=== PATIENT | female | born 1970 | race Caucasian/White ===

== ENCOUNTER 2018-03-10 08:40 | Emergency (ER) | payer BC ==
--- NOTE | 2018-03-10 08:52 | UC ---
Respiratory Complaint HPI - HPI Summary HPI Summary: Patient is 47 year old female who presents today with sinus pressure/headache and sore throat symptoms for past 2 weeks. She does have a history of previous sinusitis episodes, last one was in June that she cut the treatment for. 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 Associated symptoms: There is headache which gets worse with bending and more localized around her frontal left side. Also has jaw pain on the left side which worsens with jaw movements. She has not been able to sleep well recently due to this . No sick contacts . No skin rash. Denies any fever, chills, cough chest pain or shortness of breath . No diaphoresis. Denies any abdominal pain , nausea or vomiting , diarrhea or constipation. - History of Current Complaint Stated Complaint: SINUS COMPLAINT Time Seen by Provider: 03/10/18 08:48 Hx Obtained From: Patient Hx Last Menstrual Period: 01/08/16 ?: No - LMP February 19, 2018 Onset/Duration: Gradual Onset, Lasting Weeks Severity Initially: Mild Severity Currently: Moderate - Allergies/Home Medications Allergies/Adverse Reactions: Allergies Allergy/AdvReac Type Severity Reaction Status Date / Time Sulfa (Sulfonamide Allergy Intermediate Hives Verified 03/10/18 08:46 Antibiotics) Home Medications: Home Medications Azelastine/Fluticasone CARL(NF [Dymista(NF)] 1 spray BOTH NARES DAILY 03/10/18 [ History Confirmed 03/10/18] Omeprazole CAP* [Prilosec CAP* 20 MG] 20 mg PO DAILY PRN 03/10/18 [History Confirmed 03/10/18] PMH/Surg Hx/FS Hx/Imm Hx - Additional Past Medical History Additional PMH: Breast cancer being treated-getting radiation Previously Healthy: Yes Endocrine History: Thyroid Disease, Hypothyroidism Other Endocrine History: negative Other Cardiovascular History: negative Other Respiratory History: negative Other GI/ History: negative Other Neurological History: negative Other Psychological History: negative Cancer History: Breast Cancer - Currently getting radiation therapy - Surgical History Surgical History: Yes Surgery Procedure, Year, and Place: Appendectomy, 1999, [facility]. RIGHT breast lumpectomy, Jun 2016, [facility] - Family History Known Family History: Positive: Cardiac Disease - Social History Alcohol Use: Occasionally Alcohol Amount: 1 Substance Use Type: None Smoking Status (MU): Current Some Day Smoker Type: Cigarettes Amount Used/How Often: 1 PPD Length of Time of Smoking/Using Tobacco: On and Off for 10 Years Have You Smoked in the Last Year: No When Did the Patient Quit Smoking/Using Tobacco: 09/27/13 - Immunization History Most Recent Influenza Vaccination: UNK Most Recent Tetanus Shot: UNK Most Recent Pneumonia Vaccination: N/A Review of Systems Constitutional: Negative Skin: Negative Eyes: Negative ENT: Dental Pain, Sore Throat, Sinus Congestion, Sinus Pain/Tenderness, Other - left sided tmj pain Respiratory: Negative Cardiovascular: Negative Gastrointestinal: Negative Genitourinary: Negative Motor: Negative Neurovascular: Negative Musculoskeletal: Negative Neurological: Headache - Left frontal/sinus headache Psychological: Negative Is Patient Immunocompromised?: No All Other Systems Reviewed And Are Negative: Yes Physical Exam - Summary Physical Exam Summary: Physical Exam: Const: Appears well. No signs of apparent distress present. Alert and oriented x 3. Musculo: Walks with a normal gait. Head/Face: Atraumatic, normocephalic on inspection. Eyes: EOMI and PERRLA in both eyes. Conjunctivae clear. No discharge noted ENT: Hearing normal, TM normal appearing bilaterally . External auditory canal appears normal bilaterally. No nasal discharge noted There is tenderness to palpation on the left maxillary sinus and left frontal sinus. There is no tenderness to palpation on the ethmoid sinus. There is no significant tenderness to palpation on the left TMJ. No cervical lymphadenopathy noted Respiratory: Respirations are unlabored. Lungs clear to auscultation bilaterally, no wheezing , rhonchi or rales noted . CVS: Regular rate and Rhythm, S1S2 normal , no murmurs identified. Extremities: Peripheral circulation is grossly normal. Pulses 2+ Abdomen : Soft non tender , nondistended , Bowel sounds present . No guarding , rebound tenderness or rigidity noted. Skin: No lesions or rash located on the upper extremities or on the lower extremities. Neuro: Cranial nerves II to XII intact, motor and sensory intact. DTR Intact bilaterally. Mood is normal. Affect is normal. Triage Information Reviewed: Yes Appearance: Well-Appearing Vital Signs Reviewed: Yes Respiratory Course/Dx - Course Course Of Treatment: During the visit today, we discussed the findings which appeared to be consistent with sinusitis and further plan. I will prescribe the medication to the pharmacy . Patient expressed understanding . - Differential Dx/Diagnosis Provider Diagnoses: sinusitis Discharge - Sign-Out/Discharge Documenting (check all that apply): Patient Departure All imaging exams completed and their final reports reviewed: No Studies - Discharge Plan Condition: Stable Disposition: HOME Prescriptions: Amoxicillin/Clavulanate TAB* [Augmentin TAB 875*] 875 mg PO BID 14 Days #28 tab Loratadine/Pseudoephedrine [Claritin-D 24 Hour Tablet] 1 each PO DAILY 14 Days # 14 tab.er.24h Patient Education Materials: Sinusitis (ED) Referrals: Ina Ayala PA [Primary Care Provider] - 1 Week Additional Instructions: Please start taking the medication as prescribed to the pharmacy . Follow up with your primary care doctor in 1 week Return to Urgent care / ER if symptoms get worse. - Billing Disposition and Condition Condition: STABLE Disposition: Home
[2018-03-10 09:00] VITALS: BP 109/66
== END 2018-03-10 09:26 | disposition home or self-care (01) ==
LOC: UCCORT 08:40
DX: J32.9 Chronic sinusitis, unspecified (principal); F17.210 Nicotine dependence, cigarettes, uncomplicated; R68.84 Jaw pain; Z88.2 Allergy status to sulfonamides
CPT/HCPCS: 99212; G0463